=== PATIENT | male | born 1945 | race Caucasian/White ===

== ENCOUNTER 2019-08-17 10:04 | Inpatient (IN) | payer OTHER ==
[~2019-08-17] VITALS: Ht 170.2 cm; Wt 122.5 kg
[2019-08-17 10:05] VITALS: BP 169/76
[2019-08-17 10:24] LABS: ABSOLUTE NEUTROPHILS 6.5 thou/uL (1.4-8.2); BASOPHILS 0.5 % (0.0-2.0); EOSINOPHILS 7.4 % (0.0-3.0); HEMOGLOBIN 13.2 gm/dL (14.0-18.0); LYMPHOCYTES 16.4 % (24.0-44.0); MCH 28.6 pg (26.0-34.0); MCHC 32.1 g/dL (28.0-37.0); MCV 89.2 fL (80.0-100.0); MONOCYTES 8.8 % (1.0-8.0); PLATELET COUNT 249 thou/uL (150-400); POLYS 66.9 % (36.0-66.0); RBC 4.59 mil/uL (4.50-6.00); RDW 16.8 % (10.5-14.5); WBC 9.6 thou/uL (4.0-11.0)
[2019-08-17 10:31] LABS: ANION GAP 6 mmol/L (7-16); BUN 16 mg/dL (7-18); CHLORIDE 103 mmol/L (98-107); CO2 32 mmol/L (21-32); CREATININE 1.3 mg/dL (0.7-1.3); GLUCOSE 102 mg/dL (74-106); SODIUM 141 mmol/L (136-145)
[2019-08-17 10:42] LABS: ALBUMIN 3.3 g/dL (3.4-5.0); MAGNESIUM 1.8 mg/dL (1.8-2.4); SGOT 22 U/L (15-37); SGPT 32 U/L (30-65); TOTAL BILIRUBIN 0.3 mg/dL (<0.1-1.0); TOTAL PROTEIN 8.1 g/dL (6.4-8.2); TROPONIN-I <0.06 ng/mL (<0.06)
[2019-08-17 13:44] VITALS: BP 162/64
[2019-08-17 14:26] VITALS: BP 146/73; BP 147/80
--- NOTE | 2019-08-17 14:42 | NUR ---
TO UNIT BY CART FROM Keyla, REPORT FROM PAUL SCHWARTZ. SR PER TELE. SOB FROM CART TO BED. WILL CONTINUE TO MONITOR.
[2019-08-17 19:19] VITALS: BP 147/68
--- NOTE | 2019-08-18 01:57 | NUR ---
ASSUMED CARE OF PATIENT AT 1900. VSS, AFEBRILE. DENIES PAIN, NAUSEA OR VOMITTING. IS SITTING IN CHAIR FOR THE NIGHT, SAYS IT IS EASIER FOR HIM TO SLEEP. NO S/S OF DISTRESS, RESTING WELL THROUGH THE NIGHT. PROGRESSING TOWARDS POC GOALS.
[2019-08-18 04:45] VITALS: BP 150/75
[2019-08-18 08:00] VITALS: BP 151/82
[2019-08-18 11:55] VITALS: BP 180/82
--- NOTE | 2019-08-18 12:06 | NUR ---
AAOX4. CALM, COOPERATIVE. SLEPT IN RECLINER. COUGH SEEMS TO HAVE DIMINISHED. USING URINAL APPROPRIATELY. SR PER TELE. FALL PRECAUTIONS IN PLACE. FREQUENT CHECKS; WILL CONTINUE TO MONITOR.
--- NOTE | 2019-08-18 15:08 | EKG ---
[address] [place] [address] ELECTROCARDIOGRAM REPORT Name: GASTON PORTILLO Room #: 208-P ADM IN M.R.#: [id number] Admission: 08/17/19 Attend Phys: Dominique Fatima Discharge: Date of : 47 Report #: [id number] THIS REPORT FOR: //name// [facility] ED Test Date: 2019-08-17 Test Time: 10:28:47 Pat Name: GASTON PORTILLO Department: Room: 208 Gender: M District Claims Manager: [place] : [id number] Requested By: Luiz Mclean Order Number: [id number] MD: Sherwin Woodard Measurements Intervals [place] Rate: 84 P: 40 UT: 190 QRS: -37 QRSD: 89 T: 76 QT: 359 QTc: 425 Interpretive Statements Sinus rhythm Atrial premature complexes Left axis deviation Abnormal R-wave progression, late transition No previous ECG available for comparison Electronically Signed On 08-18-2019 15:08:06 CDT by Sherwin Woodard [email or web address] <ELECTRONICALLY SIGNED> By: Sherwin Woodard MD 08/18/19 1508 [id number] Sherwin Woodard MD /LESTER
[2019-08-18 15:15] VITALS: BP 152/70
--- NOTE | 2019-08-18 16:17 | NUR ---
INITIAL ASSESSMENT: Consult for discharge planning. GISELLA reviewed chart and spoke with nursing. Pt was admitted from home due to hypoxia. Pt with hx of CHF/HTN/morbid obesity. Pt is currently of 2L continuous O2 and IV abx. GISELLA attempted to meet with pt twice at bedside. Pt sleeping soundly during time of visit. Per chart, pt lives at home with two male roommates. There are 2 steps to enter the home. Prior to admission, pt was using cane or walker. Pt does not drive. Pt with limited family/social support. Pt does not have a PCP. Pt has [place]-Medicaid. GISELLA discussed case with [facility] rehabilitation services manager to evaluate Wednesday for possible admission to in acute rehab. Pt would not be able to go to a SNF or have HH therapy with [place]-[employer]icaid. No weekend discharge planned. GISELLA is following to assist as needed with discharge planning.
--- NOTE | 2019-08-18 18:45 | NUR ---
"FRIEND" WHO WAS OUT OF TOWN WHEN PATIENT ADMITTED VISITS. 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 HIS BUSINESS CARD PLACED ON CHART.
[2019-08-18 19:32] VITALS: BP 157/66
[2019-08-19 04:28] VITALS: BP 132/62
--- NOTE | 2019-08-19 05:42 | NUR ---
ASSESSMENTS CHARTED, MEDS GIVEN. PATIENT REMAINED IN RECLINER DURING SHIFT. PERIODIC STANDING AND EXERCISING DURING SHIFT. URINAL USED DURING SHIFT. PATIENT KEPT LEGS ELEVATED MOST OF THE SHIFT. FALL PRECAUTIONS IN PLACE. CONTINUED RESPIRATORY TREATMENTS, PT/OT TREATMENTS AND STEROID TREATMENTS TO IMPROVE BREATHING FUNCTION.
[2019-08-19 07:55] VITALS: BP 140/81
[2019-08-19] MEDS ORDERED: CEFUROXIME250 MG PO (08:46)
[2019-08-19 11:49] VITALS: BP 140/81
--- NOTE | 2019-08-19 13:33 | NUR ---
ASSESSMENT CHARTED - MEDS PER JAN - NO CO'S OF PAIN OR NAUSEA. ELISE DIET AND FLUIDS. UP IN ROOM WITH USE OF WALKER. PT HOME AFTER LUNCH - LEFT UNIT VIA WHEEL CHAIR - HOME VIA PVT VEHICLE ACCOMAPNIED BY FRIEND INSTRUCTION RE HOME MEDS/ CARE AND FOLLOW GIVEN TO PATIENT - STATED UNDERSTANDING OF INSTRUCTION GIVEN. MONITOR AND IV REMOVED PRIOR TO D/C. NO CO'S AT TIME OF DISCHARGE.
== END 2019-08-19 13:30 | disposition home or self-care (01) | DRG 202 ==
LOC: ER 10:04 → EROBS 13:16 → 2N 15:43
PROVIDERS: Emergency Medicine; ADMIT Hospitalist
DX: J20.9 Acute bronchitis, unspecified (principal); J96.91 Respiratory failure, unspecified with hypoxia; I11.0 Hypertensive heart disease with heart failure; I50.9 Heart failure, unspecified; G47.33 Obstructive sleep apnea (adult) (pediatric); R73.03 Prediabetes; R29.6 Repeated falls; Z79.899 Other long term (current) drug therapy; Z91.041 Radiographic dye allergy status
CPT/HCPCS: 10081